=== PATIENT | male | born 1965 | race Caucasian/White ===

== ENCOUNTER 2022-03-06 06:04 | Observation (INO) ==
--- NOTE | 2022-02-03 10:53 | PAT Medication Instructions ---
Medication Instructions Date of Service February 03, 2022 Home Medications atorvastatin 80 mg tablet 80 mg PO HS bupropion HCl 300 mg 24 hr tablet, extended release (Wellbutrin XL) 300 mg PO QAM clopidogrel 75 mg tablet (Plavix) 75 mg PO HS hydrochlorothiazide 12.5 mg tablet 12.5 mg PO QAM isosorbide dinitrate 30 mg tablet 30 mg PO HS paroxetine HCl 40 mg tablet (Paxil) 40 mg PO HS duloxetine 60 mg capsule,delayed release 60 mg PO BID metoprolol succinate 1 tab PO HS ASK your prescriber and surgeon clopidogrel 75 mg tablet (Plavix) 75 mg PO HS DO NOT take the morning of surgery hydrochlorothiazide 12.5 mg tablet 12.5 mg PO QAM Take morning of surgery With a small sip of water, OTHERWISE NOTHING TO EAT OR DRINK AFTER MIDNIGHT: bupropion HCl 300 mg 24 hr tablet, extended release (Wellbutrin XL) 300 mg PO QAM duloxetine 60 mg capsule,delayed release 60 mg PO BID Take evening before surgery atorvastatin 80 mg tablet 80 mg PO HS isosorbide dinitrate 30 mg tablet 30 mg PO HS paroxetine HCl 40 mg tablet (Paxil) 40 mg PO HS duloxetine 60 mg capsule,delayed release 60 mg PO BID metoprolol succinate 1 tab PO HS Other Notes If you have any questions please call us at [phone] or [phone] or [phone] or [phone]
--- NOTE | 2022-02-06 14:35 | Anesthesiology Consultation ---
Date of Service February 06, 2022 Assessment & Plan (1) Encounter for pre-operative examination: - COVID screening: Per assessment on 02/06: No known COVID-19 positive contacts or current COVID-19 related symptoms. Travel screen negative. At surgeon discretion if preop Covid testing being done. - Plavix instructions: per surgeon/prescriber - Cardiology office visit (01/30/22): "Patient with known CAD LAD stenting over 2 years ago. Has been clinically stable without any symptoms of angina pectoris or congestive heart failture.. Given his lack of symptoms it is reasonable to proceed directly to the OR as a low to intermediate risk.. Stress testing could be offered but we have to accept a false positive nature of this test if we decide to pursue it. I had a long discussion with him and he is comfortable proceeding with surgery as a low to intermediate risk. Believe this is reasonable as well.." - Patient acceptable risk for surgery pending preop EKG (done 01/2022 at [facility]). Chart Review Chart Review: Patient seen in Pre Admission Testing Teaching & Discussion Pre-Anesthesia Teaching/Discussion Notes: Instructed NPO after midnight before surgery,except medications with 15 cc of water. Medication instructions pro vided according to the PAT guidelines. History Surgery Operation Date: 03/06/22 07:45 Proposed Procedures p C3-C4 Anterior Cervical Discectomy Fusion, Spinal Cord Monitoring - Cesar Grijalva DO Height/Weight Height: 6 ft 1 in Weight: 100.1 kg Allergies Allergy/AdvReac Type Severity Reaction Status Date / Time No Known Drug Allergies Allergy Verified 02/01/22 13:05 Medications Home Medications Medication Instructions Recorded Confirmed Last Taken atorvastatin 80 mg tablet 80 mg PO HS 03/16/21 02/01/22 Unknown bupropion HCl 300 mg 24 hr tablet, 300 mg PO QAM 03/16/21 02/01/22 Unknown extended release (Wellbutrin XL) clopidogrel 75 mg tablet (Plavix) 75 mg PO HS 03/16/21 02/01/22 Unknown hydrochlorothiazide 12.5 mg tablet 12.5 mg PO QAM 03/16/21 02/01/22 Unknown isosorbide dinitrate 30 mg tablet 30 mg PO HS 03/16/21 02/01/22 Unknown paroxetine HCl 40 mg tablet (Paxil) 40 mg PO HS 03/16/21 02/01/22 Unknown duloxetine 60 mg capsule,delayed 60 mg PO BID 12/29/21 02/01/22 Unknown release metoprolol succinate 1 tab PO HS 02/01/22 02/01/22 Unknown Past Medical History Medical History Anxiety and depression CAD (coronary artery disease) 03/2018, x1 stent-LCX, x2 stents RCA; [facility] 11/2018, x2 stent-LAD, first diagonal x2 stents, [facility] 2019-no stents Follows with Dr. Jackson, [facility] Cervical myopathy Hx of chronic sinusitis Hx of Clostridium difficile infection 2015, tx w/abx Hx of migraines Hx of renal calculi Myocardial Infarction 03/2018 Exercise / Class Metabolic Activity III < 4 Walking/Shop/Light housework (one FS (no CP, + SOB)) Past Family History Family History Father Hypertension Heart disease Mother Hypertension Stroke Heart disease Sister Stomach cancer Other No family history of adverse response to anesthesia No family history of bleeding disorder Past Surgical History Surgical History History of cardiac cath 03/2018, x1 stent-LCX, x2 stents RCA; [facility] 11/2018, x2 stent-LAD, first diagonal x2 stents, [facility] 2019-no stents History of esophagogastroduodenoscopy (EGD) Hx of anterior cruciate ligament tear reconstruction Left Hx of biopsy Left pelvis bone bx Hx of colonoscopy Hx of endoscopic retrograde cholangiopancreatography for bx of mass/nodule on pancreas Hx of LASIK Past Anesthesia History No Hx of Anesthesia Complications Son - dyspnea with anesthesia emergence, resolved with oxygen supplementation History of PONV No Hx of PONV and Hx of Motion Sickness (occasional) Social History Smoking Status: Current every day smoker tobacco type: cigarettes Smoking cigarettes per day: 20 Do You Dip or Chew Tobacco: No Hx Alcohol Use: Yes Alcohol type: beer alcohol intake frequency: holidays/special occasions only Hx Substance Use: No substance use type: does not use Review of Systems Patient denies chest pain, shortness of breath, dyspnea on exertion, fever, chills, cough, wheezing, palpitations. Physical Exam Vital Signs VITALS BP 131/86 P 81 TEMP 98.4 SP02 98%RA RESP 16 PHYSICAL Full cervical extension range of motion. Full TMJ range of motion. TMD 4 finger breaths Mallampati Score 3 Dentition: missing sides/molars Lungs: clear throughout to auscultation Cardiac: regular rate and rhythm, no murmurs noted Spine: normal Carotid arteries: negative bruit Extremities: no edema Short [place] Lab Results Anesthesia Preop Results Results Anesthesia Widget: WBC 6.63 K/ul (4.8-10.8) 02/06/22 Hgb 12.9 g/dl (14.0-18.0) L 02/06/22 Hct 36.7 % (40.1-51.0) L 02/06/22 Plt 147 K/uL (130-400) 02/06/22 Na 140 mmol/L (136-145) 02/06/22 K 3.6 mmol/L (3.5-5.1) 02/06/22 Cl 109 mmol/L (98-107) H 02/06/22 CO2 24 mmol/L (21-32) 02/06/22 BUN 9 mg/dl (6-23) 02/06/22 Creat 0.75 mg/dl (0.6-1.4) 02/06/22 Glucose Level 97 mg/dl (70-99(Fasting)) 02/06/22 PT 10.3 Seconds (9.0-12.0) 02/06/22 PTT 24.5 Seconds (21.0-31.0) 02/06/22 INR 1.0 (0.9-1.1) 02/06/22 Urine Color Yellow 02/06/22 Urine Appearance Clear (Clear) 02/06/22 Urine pH 7.0 (4.5-7.5) 02/06/22 Urine Specific [place] 1.005 (1.000-1.030) 02/06/22 Urine Protein Negative (Negative) 02/06/22 Urine Glucose (UA) Negative (Negative) 02/06/22 Urine Ketones Negative (Negative) 02/06/22 Urine Blood Negative (Negative) 02/06/22 Urine Nitrite Negative (Negative) 02/06/22 Urine Bilirubin Negative (Negative) 02/06/22 Urine Urobilinogen Negative (Negative) 02/06/22 Urine Leukocyte Esterase Negative (Negative) 02/06/22 Blood Type AB Positive 02/06/22 Antibody Screen NEGATIVE 02/06/22 Testing Echocardiogram Date: 01/20/20 EF 55%. Mild LAD. Mild to moderate MR. Physiologic TX. Stress Test Date: 08/24/20 Type: exercise Stress EKG was negative for myocardial ischemia at 86% MPHR. Moderate level of exercise achieved. 10.1 METS. No chest pain reported with exercise. Cardiac Catheterization Date: 01/20/20 Patent prior stents. Chronic total occlusion of the apical LAD. Collateralization via left to left and right to left. Diffuse mild nonocclusive disease. Normal LV systolic function. Recommendations: Medical management recommended. Other Testing CT Chest (01/30/22) Clear large airways. Multiple calcified granulomas b/l. No suspicious noncalcified pulmonary nodules. Moderate coronary calcifications. COVID-19 Risk Screen Screening Information COVID-19 Screen Date: 02/06/22 Exposure 21 Days Family/Household +COVID Last 21 Days: No Exposure 10 Days Any COVID Exposure Last 10 Days: No Symptoms Last 10 Days Experienced COVID Sx Last 10 Days: No + COVID 0-90 Days COVID + in Last 0-90 Days: No
[~2022-03-06 06:04] MED LIST: ACETAMINOPHEN 500 MG TAB PO SCH; CeleBREX 200 MG CAP PO SCH; GABAPENTIN 900 MG DOSE PO SCH; LR 15ML/HR IV SCH; ceFAZolin 2000MG 2,000 MG/15 ML SYR IV SCH
[2022-03-06] MEDS ORDERED: MIDAZOLAM HCL 1 MG/ML 2ML VIAL ONE (06:51)
[2022-03-06] MEDS ORDERED: fentaNYL citrate 100 MCG/2 ML VIAL ONE ×2 (06:51→07:01)
[2022-03-06] MEDS ORDERED: ceFAZolin 330 MG/ML 1 GM VIAL ONE (06:54)
[2022-03-06] MEDS ORDERED: DEXAMETHASONE SOD INJ 4 MG/ML VIAL ONE (07:01)
[2022-03-06] MEDS ORDERED: ONDANSETRON INJ 2 MG/ML 2 ML VIAL ONE (07:01)
[2022-03-06] MEDS ORDERED: ROCURONIUM BROMIDE 10 MG/ML 5 ML VIAL IV ONE (07:01)
[2022-03-06] MEDS ORDERED: SUCCINYLCHOLINE CHLORIDE 20 MG/ML 10 ML VIAL IV ONE (07:01)
[2022-03-06] MEDS ORDERED: ePHEDrine sulfate 50 MG/ML AMP IV PRN (07:04)
[2022-03-06] MEDS ORDERED: fentaNYL citrate 100 MCG/2 ML VIAL IV PRN (07:04)
[2022-03-06] MEDS ORDERED: ONDANSETRON INJ 2 MG/ML 2 ML VIAL IV PRN ×2 (07:04→10:53)
[2022-03-06] MEDS ORDERED: HYDROmorphone INJ 2 MG/ML SYR/VIAL IV PRN (07:04)
[2022-03-06] MEDS ORDERED: ATROPINE SULFATE 0.1 MG/ML 10ML SYR IV PRN (07:04)
--- NOTE | 2022-03-06 07:35 | History & Physical Bridge Note ---
Date of Service March 06, 2022 History & Physical Bridge Note I have examined the patient, reviewed the History & Physical and in the interval since the performance of the History & Physical I have noted the following changes of clinical significance: no changes noted
--- NOTE | 2022-03-06 07:36 | History & Physical Report ---
Date of Service March 06, 2022 Assessment & Plan (1) Myelopathy concurrent with and due to spinal stenosis of cervical region: Plan: Anterior cervical discectomy and fusion C3-C4 History of Present Illness Chief Complaint: Neck and arm pain Primary Care Provider: Dana Mcbride MD This is a 56-year-old male presents with chronic persistent neck and arm symptoms after failing course of nonoperative care is here for surgical intervention. Allergies Allergy/AdvReac Type Severity Reaction Status Date / Time No Known Drug Allergies Allergy Verified 03/06/22 06:33 Home Medications Medication Instructions Recorded Confirmed Type atorvastatin 80 mg tablet 80 mg PO HS 03/16/21 03/06/22 History bupropion HCl 300 mg 24 hr tablet, 300 mg PO QAM 03/16/21 03/06/22 History extended release (Wellbutrin XL) clopidogrel 75 mg tablet (Plavix) 75 mg PO HS 03/16/21 03/06/22 History paroxetine HCl 40 mg tablet (Paxil) 40 mg PO HS 03/16/21 03/06/22 History duloxetine 60 mg capsule,delayed 60 mg PO BID 12/29/21 03/06/22 History release metoprolol succinate 1 tab PO HS 02/01/22 03/06/22 History Past Med/Surg History Medical History Anxiety and depression CAD (coronary artery disease) 03/2018, x1 stent-LCX, x2 stents RCA; [facility] 11/2018, x2 stent-LAD, first diagonal x2 stents, [facility] 2019-no stents Follows with Dr. Jackson, [facility] Cervical myopathy Hx of chronic sinusitis Hx of Clostridium difficile infection 2015, tx w/abx Hx of migraines Hx of renal calculi Myocardial Infarction 03/2018 Surgical History History of cardiac cath 03/2018, x1 stent-LCX, x2 stents RCA; [facility] 11/2018, x2 stent-LAD, first diagonal x2 stents, [facility] 2020-no stents History of esophagogastroduodenoscopy (EGD) Hx of anterior cruciate ligament tear reconstruction Left Hx of biopsy Left pelvis bone bx Hx of colonoscopy Hx of endoscopic retrograde cholangiopancreatography for bx of mass/nodule on pancreas Hx of LASIK Family History Father Hypertension Heart disease Mother Hypertension Stroke Heart disease Sister Stomach cancer Other No family history of adverse response to anesthesia No family history of bleeding disorder Social History Smoking Status: Current every day smoker Tobacco Type: Cigarettes Age Started Using Tobacco: 34; packs per day: 1; Cigarettes Per Day: 20; Second Hand Exposure: No; Do You Dip or Chew Tobacco: No; Tobacco Cessation Education Requested by Patient: No Hx Alcohol Use: Yes Alcohol type: beer Alcohol Intake Frequency Comment: occasional Hx Substance Use: No Preferred Language: Yemeni Communication Ability: Effective Rouge Mixer Required: No Beliefs That Will Affect Care: None marital status: Single Current Living Situation: Family current occupational status: employed 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
[2022-03-06] MEDS ORDERED: PHENYLEPHRINE 100MCG/ML 5ML SYR ONE (08:17)
[2022-03-06] MEDS ORDERED: ePHEDrine sulfate 50 MG/ML SYR ONE (08:17)
[2022-03-06] MEDS ORDERED: PHENYLEPHRINE HCL 10 MG/ML VIAL ONE (08:25)
[2022-03-06] MEDS ORDERED: GLYCOPYRROLATE 0.2 MG/ML VIAL ONE (08:44)
[2022-03-06] MEDS ORDERED: FLOSEAL HEMOSTATIC MATRIX 10ML TOP ONE (08:56)
--- NOTE | 2022-03-06 09:11 | Operative Report ---
Post Operative Report Pre & Post Diagnosis Operation Date: 03/06/22 07:45 Pre-Op Diagnosis: Cervical spinal stenosis with myelopathy Post-Op Diagnosis: Seen I identified the patient and participated in the time-out.: Yes Procedure Operation Date: 03/06/22 07:45 Actual Procedures #1 anterior cervical discectomy with bilateral foraminotomies C3-C4. #2 a nterior cervical arthrodesis C3-C4. #3 placement of Spira 8 mm cage filled with I factor C3-C4. #4 application of K2 M plate and screws across C3-C4. 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 Description of Procedure Patient was met with identified informed consent obtained. Patient was then taken to the operative suite underwent a patient placed in a supine position on the Sonu table with the head Benito head of biology. All bony prominences well-padded eyes inspected to ensure no external pressure placed upon them. This point the anterior cervical spine was prepped and draped in a sterile fashion. The assistance of fluoroscopy identified the C3-C4 disc base and a transverse incision was placed along the right anterior aspect of the cervical spine overlying his region. Blunt dissection with the assistance of bipolar electrocautery was performed down to and exposing the anterior cervical spine at C3-C4. A self-retaining retractors placed. Informed complete discectomy of C3- C4 to the uncovertebral joints bilaterally. [place] distracting pins were utilized to assist in visualization. Removed all posterior annular fibers longitudinal ligament bilateral foraminotomies performed. Endplates burred to subcortical bleeding bone and a 8 mm spiral cage filled with I factor tapped in position. Distracting apparatus was removed and a K2 M plate and screws applied with the assistance of fluoroscopy. The incision was then copiously irrigated explored to ensure no damage to surrounding structures or remaining bleeding. 10 round HODAN drain inserted. The incision was then closed with 2 Vicryl in a fashion of 4 Monocryl for fascial closure. Steri-Strips dressings placed. Patient waken taken to PACU in stable condition. Please note spinal cord monitoring was utilized at the procedure no changes noted. I attest to the content of the Intraoperative Record and any orders documented therein. Any exceptions are noted below.
--- NOTE | 2022-03-06 09:59 | Fluoroscopy Report ---
FL cervical 2-3V CLINICAL HISTORY: ACDF C3-C4 TECHNIQUE: 2 views were obtained with the C-arm in the OR with the above procedure. Total fluoroscopy time was 8.6 seconds. Radiation dose was 1.37 mGy. Comparison: None available at the time of this dictation. FINDINGS/IMPRESSION: Intraoperative images were obtained of ACDF of C3-C4. Please correlate with intraoperative fluoroscopy and operative report. ACT 112: Negative or not required by law. Electronically signed by: Jairo Romero M.D. 03/06/2022 9:58 AM
--- NOTE | 2022-03-06 10:23 | Anesthesiology Progress Note ---
Date of Service March 06, 2022 Anesthesia Post Procedure Vital Signs Vital Signs: Temp Pulse Resp BP Pulse Ox O2 Del Method O2 Flow Rate 03/06/22 10:20 97.3 F L 72 17 130/82 99 Room Air 03/06/22 10:10 75 18 125/86 99 Room Air 03/06/22 10:00 78 13 142/83 H 98 Room Air 03/06/22 09:50 78 21 135/82 97 Room Air 03/06/22 09:40 82 13 151/99 H 100 Oxymask 13 03/06/22 09:30 87 15 120/66 100 Oxymask 13 03/06/22 09:24 97.2 F L 80 12 158/92 H 99 Oxymask 13 03/06/22 06:36 97.7 F 61 18 115/81 99 Room Air Pain Intensity Anterior Neck: Pain Intensity: 3 Transfer of Care Handoff Completed per policy Notes Mental Status: alert / awake / arousable and participated in evaluation Patient Amnestic to Procedure: Yes Nausea / Vomiting: adequately controlled Pain: adequately controlled Airway Patency, RR, SpO2: stable & adequate BP & HR: stable & adequate Hydration State: stable & adequate Anesthetic Complications: no major complications apparent and Pt Satisfied with anesthetic care
[2022-03-06] MEDS ORDERED: hydrOXYzine HCl 25 MG TAB PO PRN (10:53)
[2022-03-06] MEDS ORDERED: FAMOTIDINE 20 MG TAB PO PRN (10:53)
[2022-03-06] MEDS ORDERED: bisacodyL 10 MG SUPP PR PRN (10:53)
[2022-03-06] MEDS ORDERED: ACETAMINOPHEN 500 MG TAB PO PRN (10:53)
[2022-03-06] MEDS ORDERED: SOD PHOSPHATE/SOD BIPHOSPHATE ENEMA 132 ML BTL PR PRN (10:53)
[2022-03-06] MEDS ORDERED: dexAMETHasone 8 MG in SYRINGE 0 ML IV PRN (10:53)
[2022-03-06] MEDS ORDERED: ALUMINUM/MAGNESIUM SUSP 30 ML UDC PO PRN (10:53)
[2022-03-06] MEDS ORDERED: RACEPINEPHRINE 2.25% NEBU SOLN 0.5 ML VIAL INH PRN (10:53)
[2022-03-06] MEDS ORDERED: traMADol HCL 50 MG TABLET PO PRN (10:53)
[2022-03-06] MEDS ORDERED: HYDROmorphone INJ 1 MG/ML SYRINGE IV PRN (10:53)
[2022-03-06] MEDS ORDERED: LORazepam 0.5 MG TAB PO PRN (10:53)
[2022-03-06] MEDS ORDERED: DO NOT ADMINISTER FLU VACCINE PRN (10:53)
[2022-03-06] MEDS ORDERED: NALOXONE HCL 0.4 MG/1 ML VIAL/CARP IV PRN (10:53)
[2022-03-06] MEDS ORDERED: PROMETHAZINE HCL 12.5 MG in SODIUM CHLORIDE 0.9% 50 ML IV PRN (10:53)
[2022-03-06] MEDS ORDERED: LORazepam 2 MG/1 ML VIAL IV PRN (10:53)
[2022-03-06] MEDS ORDERED: ONDANSETRON 4 MG OD TAB PO PRN (10:53)
[2022-03-06] MEDS ORDERED: HYDROmorphone INJ 0.5 MG/0.5 ML SYR IV PRN (10:53)
[2022-03-06] MEDS ORDERED: oxyCODONE HCL IR 5 MG TAB (IMMEDIATE RELEASE) PO PRN (10:53)
[2022-03-06] MEDS ORDERED: diphenhydrAMINE Capsule 25 MG CAP PO PRN (10:53)
[2022-03-06] MEDS ORDERED: ACETAMINOPHEN 1,000 MG/100 ML VIAL IV PRN (10:53)
[2022-03-06] MEDS ORDERED: MAGNESIUM HYDROXIDE SUSP 30 ML UDC PO PRN (10:53)
[2022-03-06] MEDS ORDERED: DO NOT ADMINISTER PNEUMOCOCCAL VACCINE PRN (10:53)
[2022-03-06] MEDS ORDERED: METOCLOPRAMIDE HCL INJ 5 MG/ML 2 ML VIAL IV PRN (10:53)
[2022-03-06] MEDS: LACTATED RINGER'S 1,000 ML IV SCH ×3 (11:01→19:41)
--- NOTE | 2022-03-06 11:42 | Hospitalist Consultation ---
Date of Consultation March 06, 2022 Assessment & Plan (1) Status post cervical discectomy: (2) Myelopathy concurrent with and due to spinal stenosis of cervical region: - Pain management, bowel regimen and DVT ppx per the primary team - PT/OT consults - lives at home with son who will help him - Follow am CBC to monitor for acute blood loss, last hgb was 12.9 on 02/06 (3) CAD (coronary artery disease): - Hx of 7 stents total - follows with Dr. Jackson - Called outpatient pharmacy [facility] in [facility] - dose confirmed at 25 mg daily (4) Anxiety and depression: - Continue bupropion, duloxetine, paroxetine as scheduled (5) Tobacco abuse: - Cessation encouraged, ordered nicotine patch, smokes 1ppd x many years DVT ppx: teds, scds, Thank you for involving us in the care of Mr. Clemens. Please do not hesitate to call with questions or concerns. At this time medicine service will follow along. Supervising Physician Co-Signing Physician Notes I have seen and examined the patient and have discussed the case with the provider above. I agree with the assessment and plan as stated. 56 yo M here for elective c-spine surgery. Doing well post-op. No issues with breathing. Pain well managed. No pain or numbness in arms. My physical exam reflects that above. Labs and meds reviewed. Cont per plan outlined above. DO Souleymane History of Present Illness Reason for Consultation: Post op medical management Requesting Physician: Dr. Grijalva Attending Physician: Cesar Grijalva DO History of Present Illness This is a 56-year-old male with PMHx of CAD with BLANCA in LAD, first diagonal x 2, left circumflex, RCA x 2 in 2019, anxiety and depression, migraines, and renal calculi who presented for cervical discectomy with bilateral foraminotomies C3- C4 by Dr. Grijalva today on 03/06/2022. Pt reports doing well s/p surgery. He has complaints of sore throat but is tolerating liquids without difficulty at bedside. Last BM was this morning. Urinating well prior to surgery, pickering cath in place currently. Pt lives at home with his sister who he helps care for and son who is in his 20s. Pt smokes 1 ppd cigarettes. Allergies Allergy/AdvReac Type Severity Reaction Status Date / Time No Known Drug Allergies Allergy Verified 03/06/22 06:33 Home Medications Medication Instructions Recorded Confirmed Type atorvastatin 80 mg tablet 80 mg PO HS 03/16/21 03/06/22 History bupropion HCl 300 mg 24 hr tablet, 300 mg PO QAM 03/16/21 03/06/22 History extended release (Wellbutrin XL) clopidogrel 75 mg tablet (Plavix) 75 mg PO HS 03/16/21 03/06/22 History paroxetine HCl 40 mg tablet (Paxil) 40 mg PO HS 03/16/21 03/06/22 History duloxetine 60 mg capsule,delayed 60 mg PO BID 12/29/21 03/06/22 History release metoprolol succinate 25 mg 25 mg PO DAILY 03/06/22 03/06/22 History tablet,extended release 24 hr oxycodone 5 mg tablet 5 mg PO Q6H PRN pain, severe #20 03/06/22 03/06/22 Rx tabs tramadol 50 mg tablet 50 mg PO Q6H PRN pain, moderate 03/06/22 03/06/22 Rx #30 tabs Patient History Medical History (Updated 03/06/22 @ 12:25 by Adelita Phillips PA-C) Anxiety and depression CAD (coronary artery disease) 03/2018, x1 stent-LCX, x2 stents RCA; [facility] 11/2018, x2 stent-LAD, first diagonal x2 stents, [facility] 2019-no stents Follows with Dr. Jackson, [facility] Cervical myopathy Hx of chronic sinusitis Hx of Clostridium difficile infection 2015, tx w/abx Hx of migraines Hx of renal calculi Myocardial Infarction 03/2018 Surgical History (Updated 03/06/22 @ 11:56 by Adelita Phillips PA-C) History of cardiac cath 03/2018, x1 stent-LCX, x2 stents RCA; [facility] 11/2018, x2 stent-LAD, first diagonal x2 stents, [facility] 2019-no stents History of esophagogastroduodenoscopy (EGD) Hx of anterior cruciate ligament tear reconstruction Left Hx of biopsy Left pelvis bone bx Hx of colonoscopy Hx of endoscopic retrograde cholangiopancreatography for bx of mass/nodule on pancreas Hx of LASIK Family History Father Hypertension Heart disease Mother Hypertension Stroke Heart disease Sister Stomach cancer Other No family history of adverse response to anesthesia No family history of bleeding disorder Social History Smoking Status: Current every day smoker Tobacco Type: Cigarettes Age Started Using Tobacco: 34; packs per day: 1; Cigarettes Per Day: 20; Second Hand Exposure: No; Do You Dip or Chew Tobacco: No; Tobacco Cessation Education Requested by Patient: No Hx Alcohol Use: Yes Alcohol type: beer Alcohol Intake Frequency Comment: occasional Hx Substance Use: No Preferred Language: Bhutanese Communication Ability: Effective Telegraphic Typewriter Operator Chief Required: No Beliefs That Will Affect Care: None marital status: Single Current Living Situation: Family current occupational status: employed 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 Other Information That Helps Us Care for You: No Feels Safe at Home: Yes Safety Concerns: Feels Safe At This Time Assistive Devices: None Review of Systems Review of Systems: Constitutional: No fever, sweats or chills Eyes: No diplopia, no worsening or blurred vision ENT: normal hearing, no trouble swallowing, + sore throat sp surgery Respiratory: No cough, sputum, dyspnea at rest or on exertion Cardiovascular: No chest pain, tightness or palpitations Abdomen: No pain, nausea, vomiting, diarrhea or constipation Musculoskeletal: No joint pain, calf pain, swelling Neurologic: No weakness, numbness/tingling, or balance problems Psychiatric: No anxiety or depression Skin: No rash or itch Physical Exam Physical Exam: General: awake, alert, no apparent distress Head: Normocephalic, atraumatic ENT: PERRL, EOMI, no pharyngeal exudate, mucous membranes moist, cspine collar in place, HODAN drain Chest: Clear to auscultation, on room air, no adventitious breath sounds Cardiac: Regular rate and rhythm, no murmur, no JVD, normal peripheral pulses, good capillary refill Abdominal: NABS x 4 quadrants, soft, nondistended, nontender to palpation, no rebound or guarding Extremities: Normal inspection, no peripheral edema or erythema, calfs nontender to palpation Psych: Normal mood and affect Neuro: AAO x 3, strength intact bilaterally and rated 5/5, no motor deficits, speech is clear, no peripheral sensory deficits Results & Data Results & Data ([facility]) Vital Signs (Past 12 Hours) Vital Signs Temp Pulse Pulse Resp BP Pulse Ox O2 Del Method 03/06/22 10:53 88 18 97 Room Air 03/06/22 11:05 80 18 138/84 97 Room Air 03/06/22 10:30 75 13 143/89 H 97 Room Air 03/06/22 10:20 36.3 C L 72 17 130/82 99 Room Air 03/06/22 10:10 75 18 125/86 99 Room Air 03/06/22 10:00 78 13 142/83 H 98 Room Air 03/06/22 09:50 78 21 135/82 97 Room Air 03/06/22 09:40 82 13 151/99 H 100 Oxymask 03/06/22 09:30 87 15 120/66 100 Oxymask 03/06/22 09:24 36.2 C L 80 12 158/92 H 99 Oxymask 03/06/22 06:36 36.5 C 61 18 115/81 99 Room Air O2 Flow Rate 03/06/22 10:53 03/06/22 11:05 03/06/22 10:30 03/06/22 10:20 03/06/22 10:10 03/06/22 10:00 03/06/22 09:50 03/06/22 09:40 13 03/06/22 09:30 13 03/06/22 09:24 13 03/06/22 06:36 Medications Administered Current Inpatient Medications Acetaminophen (Acetaminophen 500 Mg Tab) 1,000 mg PO Q8H PRN PRN Reason: MILD Pain Scale 1,2,3 & Pre PT Stop: 04/05/22 10:52 Last Admin: 03/06/22 17:41 Dose: 1,000 mg Al Hydrox/Mg Hydrox/Simethicone (Aluminum/Magnesium Susp 30 Ml Udc) 30 ml PO Q6H PRN PRN Reason: Dyspepsia Stop: 04/05/22 10:52 Atorvastatin Calcium (Atorvastatin 40 Mg Tab) 80 mg PO HS OTIS Stop: 04/05/22 20:59 Bisacodyl (Bisacodyl 10 Mg Supp) 10 mg NV DAILY PRN PRN Reason: Constipation Stop: 04/05/22 10:52 Bupropion HCl (Bupropion Xl 300 Mg Tabcr) 300 mg PO QAM OTIS Stop: 04/06/22 08:59 Diphenhydramine HCl (Diphenhydramine Capsule 25 Mg Cap) 25 mg PO Q6H PRN PRN Reason: Allergic Rhinitis/Insomnia Stop: 04/05/22 10:52 Duloxetine HCl (Duloxetine Hcl 60 Mg Cap) 60 mg PO BID [facility] Stop: 04/05/22 20:59 Epinephrine (Racepinephrine 2.25% Nebu Soln 0.5 Ml Vial) 0.5 ml INH NOW PRN PRN Reason: If stridor present Famotidine (Famotidine 20 Mg Tab) 20 mg PO Q12H PRN PRN Reason: Dyspepsia Stop: 04/05/22 10:52 Hydromorphone HCl (Hydromorphone Inj 0.5 Mg/0.5 Ml Syr) 0.5 mg IV Q3H PRN PRN Reason: MODERATE Pain (Scale 4,5,6) & Pre PT Stop: 03/20/22 10:52 Hydromorphone HCl (Hydromorphone Inj 1 Mg/Ml Syringe) 1 mg IV Q3H PRN PRN Reason: SEVERE Pain (Scale 7,8,9,10) Stop: 03/20/22 10:52 Hydroxyzine HCl (Hydroxyzine Hcl 25 Mg Tab) 25 mg PO Q8H PRN PRN Reason: Anxiety Stop: 04/05/22 10:52 Lactated Ringer's (Lr) 1,000 mls @ 15 mls/hr IV .Q24H [facility] Stop: 03/07/22 05:59 Last Infusion: 03/06/22 07:41 Dose: Infused Dexamethasone 8 mg/ Syringe 2 mls @ 1 mls/min IV NOW PRN PRN Reason: If stridor present Lactated Ringer's (Lr) 1,000 mls @ 150 mls/hr IV .Q6H40M [facility] Stop: 04/05/22 10:52 Last Admin: 03/06/22 17:41 Dose: 150 mls/hr Promethazine HCl 12.5 mg/ (Sodium Chloride) 50.5 mls @ 202 mls/hr IV Q6H PRN PRN Reason: Nausea &/or Vomiting Stop: 04/05/22 10:52 Acetaminophen (Ofirmev) 1,000 mg in 100 mls @ 400 mls/hr IV Q8H PRN PRN Reason: Pain Rating 1-3 & Pre PT Stop: 03/07/22 10:53 Cefazolin Sodium (Ancef 2000mg) 2,000 mg in 15 mls @ 3.75 mls/min IV Q8H [facility]; Protocol Stop: 03/06/22 23:18 Last Admin: 03/06/22 15:30 Dose: 3.75 mls/min Dexamethasone 6 mg/ Syringe 1.5 mls @ 1 mls/min IV Q8H [facility] Stop: 03/07/22 02:55 Last Admin: 03/06/22 18:17 Dose: 1 mls/min Influenza Virus Vaccine Quadrival (Do Not Administer Flu Vaccine) 1 each N/A PRN PRN PRN Reason: Notification Stop: 04/05/22 10:52 Lorazepam (Lorazepam 0.5 Mg Tab) 0.5 mg PO Q8H PRN PRN Reason: Sedation/Anxiety Stop: 04/05/22 10:52 Lorazepam (Lorazepam 2 Mg/1 Ml Vial) 0.5 mg IV Q8H PRN PRN Reason: Sedation/Anxiety Stop: 04/05/22 10:52 Magnesium Hydroxide (Magnesium Hydroxide Susp 30 Ml Udc) 30 ml PO Q24H PRN PRN Reason: Constipation Stop: 04/05/22 10:52 Metoclopramide HCl (Metoclopramide Hcl Inj 5 Mg/Ml 2 Ml Vial) 10 mg IV Q6H PRN PRN Reason: Nausea &/or Vomiting Stop: 04/05/22 10:52 Metoprolol Succinate (Metoprolol Succ 25mg Ext Rel Tab) 25 mg PO DAILY [facility] Stop: 04/05/22 12:29 Last Admin: 03/06/22 13:03 Dose: 25 mg Miscellaneous (Remove Nicoderm Patch) 1 each N/A DAILY@0859 [facility] Stop: 04/06/22 08:58 Naloxone HCl (Naloxone Hcl 0.4 Mg/1 Ml Vial/Carp) 0.1 mg IV Q5M PRN PRN Reason: Oversedation/Resp depression Stop: 04/05/22 10:52 Nicotine (Nicotine 21 Mg/24 Hr Tdsy) 21 mg TD QAM [facility] Stop: 04/05/22 12:29 Last Admin: 03/06/22 13:02 Dose: Not Given Ondansetron HCl (Ondansetron Inj 2 Mg/Ml 2 Ml Vial) 4 mg IV Q6H PRN PRN Reason: Nausea &/or Vomiting Stop: 04/05/22 10:52 Ondansetron HCl (Ondansetron 4 Mg Od Tab) 4 mg PO Q6H PRN PRN Reason: Nausea Stop: 04/05/22 10:52 Oxycodone HCl (Oxycodone Hcl Ir 5 Mg Tab (Immediate Release)) 5 - 10 mg PO Q4H PRN PRN Reason: Pain & Pre PT Stop: 03/20/22 10:52 Paroxetine HCl (Paroxetine Hcl 20 Mg Tab) 40 mg PO HS OTIS Stop: 04/05/22 20:59 Phenol (Chloraseptic 1.4% Soln 180 Ml Btl) 2 sprays MT Q4H PRN PRN Reason: Sore Throat Stop: 04/05/22 12:24 Pneumococcal Polyvalent Vaccine (Do Not Administer Pneumococcal Vaccine) 1 each N/A PRN PRN PRN Reason: Notification Stop: 04/05/22 10:52 Polyethylene Glycol (Polyethylene (Miralax) 17 Gm Pack) 17 gm PO Q6 OTIS Stop: 04/06/22 05:59 Senna/Docusate Sodium (Docusate Sodium/Senna 50/8.6mg Tab) 2 tab PO HS OTIS Stop: 04/05/22 20:59 Sodium Biphosphate/Sodium Phosphate (Sod Phosphate/Sod Biphosphate Enema 132 Ml Btl) 132 ml NV ONE PRN PRN Reason: Constipation Stop: 04/05/22 10:52 Tramadol HCl (Tramadol Hcl 50 Mg Tablet) 50 - 100 mg PO Q4H PRN PRN Reason: Moderate-Severe pain & Pre PT Stop: 04/05/22 10:52
[2022-03-06] MEDS ORDERED: CHLORASEPTIC 1.4% SOLN 180 ML BTL MT PRN (12:25)
[2022-03-06] MEDS: dexAMETHasone 6 MG in SYRINGE 0 ML IV SCH ×2 (12:34→18:17)
[2022-03-06] MEDS: NICOTINE 21 MG/24 HR TDSY TD SCH (13:02)
[2022-03-06] MEDS: METOPROLOL SUCC 25MG EXT REL TAB PO SCH (13:03)
[2022-03-06] MEDS: ceFAZolin 2000MG 2,000 MG/15 ML SYR IV SCH ×2 (15:30→23:50)
[2022-03-06] MEDS: DULoxetine HCL 60 MG CAP PO SCH (19:39)
[2022-03-06] MEDS ORDERED: ATORVASTATIN 40 MG TAB PO SCH (21:00)
[2022-03-06] MEDS ORDERED: DOCUSATE SODIUM/SENNA 50/8.6MG TAB PO SCH (21:00)
[2022-03-06] MEDS ORDERED: NON-FORMULARY MEDICATION (Metoprolol Succinate 1 TAB) PO SCH (21:00)
[2022-03-06] MEDS ORDERED: PARoxetine HCL 20 MG TAB PO SCH (21:00)
[2022-03-07] MEDS: LACTATED RINGER'S 1,000 ML IV SCH (03:13)
[2022-03-07] MEDS: dexAMETHasone 6 MG in SYRINGE 0 ML IV SCH (03:13)
[2022-03-07] MEDS: POLYETHYLENE (MIRALAX) 17 GM PACK PO SCH ×2 (05:09→11:42)
[2022-03-07] MEDS: NICOTINE 21 MG/24 HR TDSY TD SCH (07:42)
[2022-03-07] MEDS: DULoxetine HCL 60 MG CAP PO SCH (07:43)
[2022-03-07] MEDS: METOPROLOL SUCC 25MG EXT REL TAB PO SCH (07:43)
[2022-03-07] MEDS ORDERED: buPROPion XL 300 MG TABCR PO SCH (09:00)
--- NOTE | 2022-03-07 11:40 | Discharge Summary ---
Date of Service March 07, 2022 Admission HPI Per Admitting Provider This is a 56-year-old male presents with chronic persistent neck and arm symptoms after failing course of nonoperative care is here for surgical intervention. Principal Diagnosis Cervical spinal stenosis with myelopathy Discharge Data Allergies Allergy/AdvReac Type Severity Reaction Status Date / Time No Known Drug Allergies Allergy Verified 03/06/22 06:33 Consultations 03/06/22 10:53 Consult Hospitalist Routine Procedures Performed Operation Date: 03/06/22 07:45 Actual Procedures p C3-C4 Anterior Cervical Discectomy Fusion, Spinal Cord Monitoring(Not Applicable) - Cesar Grijalva DO Ordered Studies 03/06/22 07:45 FL cervical 2-3V Routine Hospital Course (1) Myelopathy concurrent with and due to spinal stenosis of cervical region: Patient underwent anterior cervical discectomy fusion tolerated as well as taken to orthopedic left upper leg. Postop day 1 he was up and ambulating swallowing well. No hoarseness. Symptoms are improving. Excellent strength testing. Socially discharged home. Discharge orders instructions were on the chart for further review. Total Time Total Time Spent Total Time Spent (In Minutes): 20 minutes Discharge Plan Discharge Items Patient Disposition: Home - Self-Care Reason For Visit: Spinal Stenosis, Cervical Region Discharge Diagnosis: Cervical spinal stenosis with myelopathy Activity: As commented below Non-emergency contact: Primary Care Provider Call non-emergency contact if: you have any medication questions Follow-up/Referrals: Dana Mcbride MD [Primary Care Provider] - Diet: Regular Addtl Attending Provider Instructions: ACTIVITY RECOMMENDATIONS: SELF CARE INSTRUCTIONS AFTER CERVICAL FUSIONS 1. No smoking. Smoking drastically decreases the chance of a solid fusion. 2. No bending, lifting more than 5 pounds, or twisting (roll like a log when turning in bed). 3. You may shower 3 days after surgery. Thoroughly dry wound. Do not soak in the tub. 4. Cervical collar: Must be worn at all times including sleeping. You may remove the brace only to bath, eat and if you are sitting in a recliner. 5. Please walk as much as you can for exercise. Gradually increase the distance that you walk as your endurance increases. SPECIAL CARE INSTRUCTIONS: VERY IMPORTANT TO READ AND REVIEW A. Do not take any anti-inflammatory medications (i.e. Indocin, Advil, Aspirin, Naprosyn, Aleve, Motrin, etc.) as these may inhibit the chance of a solid fusion. Tylenol is okay to take. B. Your surgical incision has been closed with a cosmetic suture under the skin that will dissolve in about 6 weeks. In 14 days, you can use a pair of clean scissors and cut the suture that is left outside of the skin at the ends of your incision. C. Complications are uncommon, but please contact us if you have any signs or symptoms of: 1. wound infection (fever higher than 102.5 degrees F, redness, separation of wound, drainage, or increasing pain from the incision) 2. blood clots in legs (pain, swelling, redness and warmth in legs) 3. urinary tract infection (fever higher than 102.5 degrees, burning upon urination or increased frequency of urination) 4. nerve problems (inability to walk on your toes or heels, numbness, loss of bowel or bladder control) 5. any other symptoms that concern you. D. Please call the office at if you have any concerns or questions about your operation or recovery. MANAGING PAIN AFTER SPINAL SURGERY 1. Narcotic medication is intended for short-term use and will be provided for surgical pain. Surgical pain usually lasts for a period of 4-6 weeks. Narcotic medication includes Percocet, Vicodin, Darvocet, Tylenol #3 or Lortab. 2. Longer-term pain is more appropriately treated with non-narcotic medication such as Tylenol ES. 3. Muscle spasm is not appropriately treated with narcotics. Muscle relaxers such as Soma, Flexeril or Skelaxin can be used along with Tylenol ES. 4. Remember that we all live with some "aches and pains". This is not unusual or uncommon after an injury or as we get older. 5. We will provide appropriate medication within the normal guidelines of their prescribed use. We will also be very cautious and aware of potential abuse and extended duration of patients' medication needs. 6. Please allow 2-3 days to process refills. Prescriptions will not be mailed but must be picked up at the office. FOLLOW UP VISIT: Keep your scheduled follow-up appointment. Any questions, please call the office at . Pending Studies at Discharge: No Stand-Alone Forms: Cyrba, Smoking Cessation Medications and DC Order Prescriptions: New tramadol 50 mg tablet 50 mg PO Q6H PRN (Reason: pain, moderate) Qty: 30 0RF oxycodone 5 mg tablet 5 mg PO Q6H PRN (Reason: pain, severe) Qty: 20 0RF Continued atorvastatin 80 mg tablet 80 mg PO HS paroxetine HCl [Paxil] 40 mg tablet 40 mg PO HS bupropion HCl [Wellbutrin XL] 300 mg tablet extended release 24 hr 300 mg PO QAM duloxetine 60 mg capsule,delayed release(DR/EC) 60 mg PO BID metoprolol succinate 25 mg Tablet Extended Release 24 Hr 25 mg PO DAILY Discontinued clopidogrel [Plavix] 75 mg tablet 75 mg PO HS Discharge Orders: Discharge Order (Routine); Ordered 03/07/22 Ordered By: Cesar Grijalva Admission Data Admit Date/Time: 03/06/22 09:14 Attending Provider: Cesar Grijalva Admit Provider: Cesar Grijalva Primary Care Provider: Dana Mcbride Other Providers: Sana Comer
== END 2022-03-07 12:55 | disposition home or self-care (01) ==
LOC: ASU 06:04 → INTOOBSV 09:14 → 3E 09:14